=== PATIENT | male | born 1975 | race American Indian/Alaskan Native ===

== ENCOUNTER 2018-02-18 13:35 | Emergency (ER) | payer OTHER ==
[2018-02-18] MEDS ORDERED: APRESOLINE IV ONE (15:57)
[2018-02-18] MEDS ORDERED: MORPHINE IV ONE (15:57)
[2018-02-18] MEDS ORDERED: BOOSTRIX IM ONE (15:57)
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
[2018-02-18 16:36] LABS: Hematocrit 45.5 % (35.5-45.6); Hemoglobin 15.5 gm/dl (11.8-15.2); Mean Corpuscular HGB Conc 34 % (32-34); Mean Corpuscular Hemoglobin 31 pg (28-32); Mean Corpuscular Volume 92 fl (84-94); Platelet Count 188 K/mm3 (140-440); Red Blood Count 4.94 M/mm3 (3.65-5.03); Red Cell Distribution Width 13.5 % (13.2-15.2)
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
[2018-02-18 16:49] LABS: BUN/Creatinine Ratio 7; Blood Urea Nitrogen 10 mg/dL (9-20); Calcium 9.9 mg/dL (8.4-10.2); Hemolysis Index 46
[2018-02-18 18:28] VITALS: BP 183/120
== END 2018-02-18 18:32 | disposition home or self-care (01) ==
LOC: ED 13:35
DX: T23.101A Burn of first degree of right hand, unspecified site, initial encounter (principal); R03.0 Elevated blood-pressure reading, without diagnosis of hypertension; W40.1XXA Explosion of explosive gases, initial encounter; Y93.89 Activity, other specified; Y92.89 Other specified places as the place of occurrence of the external cause; Y99.8 Other external cause status
CPT/HCPCS: 36415; 73130; 80048; 82550; 85027; 90471; 90715; 96374; 96375; 99284; J0360; J2270

== ENCOUNTER 2020-07-07 22:38 | Inpatient (IN) | payer SELFPAY ==
[2020-07-07] MEDS ORDERED: cloNIDine 0.2 MG TAB PO ONE (22:48)
[2020-07-07] MEDS ORDERED: ASPIRIN 325 MG TAB PO ONE (22:48)
[2020-07-07] MEDS ORDERED: ASPIRIN 325 MG TAB ONE (22:49)
--- NOTE | 2020-07-07 23:06 | Emergency Department Report ---
ED Chest Pain HPI - General Chief Complaint: Chest Pain Stated Complaint: SAMUEL PUI?: No Time Seen by Provider: 07/07/20 23:04 Source: patient Mode of arrival: Ambulatory Limitations: No Limitations - History of Present Illness Initial Comments: Patient is a 45-year-old male that presents emergency room with complaints of chest pain shortness of breath. Patient states his chest pain shortness of breath started 2 hours ago. Patient states that his symptoms are worsening. Patient states the chest pain is in the center of his chest and his left chest. Patient states it is nonradiating. Patient states the pain is a 10 out of 10. Patient states his chest pain or shortness of breath are better with rest and worse with exertion. Patient states he has a history of high blood pressure but is noncompliant with his medications. Patient denies nausea vomiting. Patient denies headache. Patient denies recent travel. Patient denies recent international travel. Patient denies exposure to the novel coronavirus. Patient denies sick contacts. Patient denies fever and chills. Patient denies cough. Patient denies diarr hea. Patient denies coming in contact with anybody with symptoms of the novel coronavirus. MD Complaint: chest pain -: Sudden Onset: during rest Pain Location: substernal, left chest Pain Radiation: none Severity: severe Severity scale (0 -10): 10 Quality: sharp Consistency: constant Worsens With: exertion re: diaphoresis, dyspnea, sense of impending doom. denies: nausea, vomting Other Symptoms: denies: cough, fever, syncope, rash, acid taste in mouth, leg swelling, palpitations, burping Treatments Prior to Arrival: aspirin Aspirin use within the Past 7 Days: (1) Yes - Related Data On Oral Contraceptives: No Previous Rx's Medication Instructions Recorded Last Taken Type Acetaminophen [Tylenol Arthritis] 650 mg PO Q6HR PRN #30 tablet.er 02/18/18 Unknown Rx Amlodipine Besylate [Norvasc] 5 mg PO QDAY #30 tablet 02/18/18 Unknown Rx Bacitracin Zinc Oint [Antibiotic 1 applicatio TP BID #1 tube 02/18/18 Unknown Rx Oint] Ibuprofen [Motrin] 600 mg PO Q8H PRN #30 tablet 02/18/18 Unknown Rx Allergies Allergy/AdvReac Type Severity Reaction Status Date / Time No Known Allergies Allergy Verified 07/07/20 22:58 Heart Score - HEART Score History: Moderately suspicious EKG: Non-specific Age: 45-65 Risk factors: 1-2 risk factors Troponin: < normal limit HEART Score: 4 ED Review of Systems ROS: Stated complaint: SAMUEL Other details as noted in HPI Constitutional: denies: chills, fever Eyes: denies: eye pain, eye discharge, vision change ENT: denies: ear pain, throat pain Respiratory: shortness of breath. denies: cough, wheezing Cardiovascular: chest pain. denies: palpitations Endocrine: no symptoms reported Gastrointestinal: denies: abdominal pain, nausea, diarrhea Genitourinary: denies: urgency, dysuria Musculoskeletal: denies: back pain, joint swelling, arthralgia Skin: denies: rash, lesions Neurological: denies: headache, weakness, paresthesias Psychiatric: denies: anxiety, depression Hematological/Lymphatic: denies: easy bleeding, easy bruising ED Past Medical Hx - Past Medical History Previous Medical History?: Yes Hx Hypertension: Yes Additional medical history: Morbid Obesity - Surgical History Past Surgical History?: Yes Additional Surgical History: hernia repair - Family History Family history: no significant - Social History Smoking Status: Never Smoker Substance Use Type: None - Medications Home Medications: Home Medications Medication Instructions Recorded Confirmed Last Taken Type Acetaminophen [Tylenol Arthritis] 650 mg PO Q6HR PRN #30 tablet.er 02/18/18 Unknown Rx Amlodipine Besylate [Norvasc] 5 mg PO QDAY #30 tablet 02/18/18 Unknown Rx Bacitracin Zinc Oint [Antibiotic 1 applicatio TP BID #1 tube 02/18/18 Unknown Rx Oint] Ibuprofen [Motrin] 600 mg PO Q8H PRN #30 tablet 02/18/18 Unknown Rx ED Physical Exam - General Limitations: No Limitations General appearance: alert, in no apparent distress - Head Head exam: Present: atraumatic, normocephalic - Eye Eye exam: Present: normal appearance - ENT ENT exam: Present: mucous membranes moist - Neck Neck exam: Present: normal inspection - Respiratory Respiratory exam: Present: normal lung sounds bilaterally. Absent: respiratory distress, chest wall tenderness - Cardiovascular Cardiovascular Exam: Present: regular rate, normal rhythm. Absent: systolic murmur, diastolic murmur, rubs, gallop - GI/Abdominal GI/Abdominal exam: Present: soft, normal bowel sounds - Rectal Rectal exam: Present: deferred - Extremities Exam Extremities exam: Present: normal inspection - Back Exam Back exam: Present: normal inspection - Neurological Exam Neurological exam: Present: alert, oriented X3 - Psychiatric Psychiatric exam: Present: normal affect, normal mood - Skin Skin exam: Present: warm, dry, intact, normal color. Absent: rash ED Course Vital Signs 07/07/20 07/07/20 07/07/20 22:46 22:56 23:50 Temperature 98.7 F Pulse Rate 99 H 99 H 99 H Respiratory 20 20 Rate Blood Pressure 270/174 270/174 Blood Pressure 139/77 [left arm] O2 Sat by Pulse 98 99 Oximetry 07/08/20 07/08/20 07/08/20 00:58 02:22 02:46 Temperature Pulse Rate 98 H 108 H Respiratory Rate Blood Pressure 183/89 Blood Pressure 202/128 211/126 [left arm] O2 Sat by Pulse 99 Oximetry 07/08/20 07/08/20 07/08/20 03:04 03:06 03:10 Temperature Pulse Rate 108 H 108 H 108 H Respiratory 22 19 Rate Blood Pressure Blood Pressure [left arm] O2 Sat by Pulse 94 Oximetry 07/08/20 07/08/20 07/08/20 03:21 03:25 03:30 Temperature Pulse Rate 108 H 109 H 112 H Respiratory 20 22 21 Rate Blood Pressure 188/121 186/120 177/127 Blood Pressure [left arm] O2 Sat by Pulse 93 85 94 Oximetry 07/08/20 07/08/20 07/08/20 03:35 03:41 03:44 Temperature Pulse Rate 119 H 112 H 100 H Respiratory 15 17 18 Rate Blood Pressure 177/127 174/111 Blood Pressure 174/111 [left arm] O2 Sat by Pulse 96 92 100 Oximetry 07/08/20 07/08/20 07/08/20 03:45 03:51 03:55 Temperature Pulse Rate 108 H 107 H 108 H Respiratory 18 20 19 Rate Blood Pressure 174/111 174/111 174/111 Blood Pressure [left arm] O2 Sat by Pulse 92 95 100 Oximetry 07/08/20 07/08/20 07/08/20 04:00 04:05 04:11 Temperature Pulse Rate 109 H 109 H 120 H Respiratory 17 18 21 Rate Blood Pressure 166/104 166/104 166/104 Blood Pressure [left arm] O2 Sat by Pulse 100 98 100 Oximetry 07/08/20 07/08/20 07/08/20 04:15 04:21 04:25 Temperature Pulse Rate 124 H 111 H 111 H Respiratory 21 27 H 19 Rate Blood Pressure 166/104 166/104 166/104 Blood Pressure [left arm] O2 Sat by Pulse 100 99 100 Oximetry 07/08/20 07/08/20 04:30 04:35 Temperature Pulse Rate 113 H 110 H Respiratory 18 25 H Rate Blood Pressure 180/108 180/108 Blood Pressure [left arm] O2 Sat by Pulse 94 99 Oximetry - Reevaluation(s) Reevaluation #1: Patient had a extremely high blood pressure in triage of 270/170. Patient given clonidine. Patient blood pressure improved. 07/07/20 23:11 Reevaluation #2: Patient having severe chest pain. Patient will be given 2 mg of morphine. 07/07/20 23:22 Reevaluation #3: Patient complaining of severe chest pain. Patient was given another 2 mg of morphine. 07/07/20 23:52 Reevaluation #4: Patient blood pressure is 180/130. Patient was given 5 mg of Lopressor. Patient states his pain is a little bit better. I discussed all results with patient. I discussed plan of care with patient. Patient agrees with plan of care and admission. Patient to be admitted to the hospitalist service. 07/08/20 00:52 Reevaluation #5: Patient blood pressure is still elevated at 230/150. After Lopressor. Patient will be placed on a nicardipine drip. 07/08/20 01:20 Patient blood pressure improved with nicardipine drip. 07/08/20 01:50 Patient second troponin came back elevated. I discussed this with the hospitalist. I will start the patient on heparin drip per the heparin protocol. 07/08/20 04:54 - Consultations Consultation #1: Hospitalist consulted for admission. Hospitalist to admit patient. 07/08/20 01:21 I discussed the new troponin with the hospitalist. Hospitalist agrees with heparin drip. 07/08/20 04:55 EMILIA score - Emilia Score Age > 65: (0) No Aspirin use within the Past 7 Days: (1) Yes 3 or more CAD Risk Factors: (0) No 2 or more Angina events in past 24 hrs: (0) No Known CAD with more than 50% Stenosis: (0) No Elevated Cardiac Markers: (0) No ST Deviation Greater than 0.5mm: (0) No EMILIA Score: 1 ED Medical Decision Making - Lab Data Result diagrams: 07/08/20 02:22 07/08/20 02:22 - EKG Data -: EKG Interpreted by Me EKG shows normal: sinus rhythm, axis, intervals, QRS complexes, ST-T waves Rate: tachycardia - Radiology Data Radiology results: report reviewed, image reviewed interpreted by me: Chest x-ray: No pneumonia, no pneumothorax, no foreign body, no osseous findings, no acute findings CHEST 1 VIEW 07/07/2020 10:41 PM INDICATION / CLINICAL INFORMATION: dyspnea, chest pain. COMPARISON: None available. FINDINGS: SUPPORT DEVICES: None. HEART / MEDIASTINUM: No significant abnormality. LUNGS / PLEURA: No significant pulmonary or pleural abnormality. No pneumothorax. ADDITIONAL FINDINGS: No significant additional findings. IMPRESSION: 1. No acute findings. CTA CHEST WITH CONTRAST INDICATION / CLINICAL INFORMATION: cp/sob. TECHNIQUE: Axial CT images were obtained through the chest after injection of 100 cc of Omnipaque 350 IV contrast. 3 plane MIP and/or 3D reconstructions were produced. All CT scans at this location are performed using CT dose reduction for ALARA by means of automated exposure control. COMPARISON: None available. FINDINGS: PULMONARY ARTERIES: No pulmonary embolus is seen. THORACIC AORTA: No significant abnormality. HEART: No significant abnormality. CORONARY ARTERY CALCIFICATION: None. MEDIASTINUM / SHERRIE: No significant abnormality. PLEURA: No pleural effusion. No pneumothorax. LUNGS: There is mosaic attenuation within the lungs which could represent small airways disease. No focal infiltrate is seen. There is mild dependent atelectasis on the right. ADDITIONAL FINDINGS: None. UPPER ABDOMEN: No acute findings. SKELETAL STRUCTURES: No significant osseous abnormality. IMPRESSION: 1. No CT evidence for pulmonary embolism. 2. Mild mosaic attenuation of the lungs which could represent small airways dise ase. - Medical Decision Making Patient is a 45-year-old male that presents emergency room with chest pain and shortness of breath. Patient had labs which were essentially unremarkable. Patient cardiac enzymes were negative. Patient had chest x-ray which was negative for acute findings. Patient had a CTA due to his complaints of shortness of breath, chest pain and elevated blood pressure. Patient CTA was negative for acute findings. Patient is high risk and has cardiac comorbidities. Patient's heart score is elevated. Patient EMILIA score is elevated. Patient's blood pressure severely [id number]. Patient was given clonidine then given Lopressor in the place his blood pressure stayed above 200. Patient then was placed on a Cardizem drip. Patient's blood pressure responded well. Patient admitted to the hospitalist service and into the ICU. Patient admitted to the hospital service for further evaluation treatment and rule out ACS. After admission, I was reviewing the patient's labs and noticed that the second troponin was elevated. I discussed this with the hospitalist and the hospitalist agrees with putting the patient on a heparin drip protocol. I started the heparin drip protocol. - Differential Diagnosis Chest pain, dissection, PE, hypertensive emergency, ACS, SOB Critical Care Time: Yes Critical care time in (mins) excluding proc time.: 45 Critical care attestation.: If time is entered above; I have spent that time in minutes in the direct care of this critically ill patient, excluding procedure time. Critical Care Time: 45 minutes ED Disposition Clinical Impression: SOB (shortness of breath), Hypertensive emergency, Hyperglycemia, NSTEMI (non- ST elevated myocardial infarction) Chest pain Qualifiers: Chest pain type: unspecified Qualified Code(s): R07.9 - Chest pain, unspecified Disposition: OP ADMIT IP TO THIS HOSP Is pt being admited?: Yes Does the pt Need Aspirin: No Condition: Critical Time of Disposition: 01:22
[2020-07-07 23:14] LABS: Basophils # (Auto) 0.1 K/mm3 (0.0-0.1); Basophils % (Auto) 1.2 % (0.0-1.8); Eosinophils # (Auto) 0.1 K/mm3 (0.0-0.4); Eosinophils % (Auto) 1.6 % (0.0-4.3); Hematocrit 47.2 % (35.5-45.6); Lymphocytes # (Auto) 2.3 K/mm3 (1.2-5.4); Lymphocytes % (Auto) 29.4 % (13.4-35.0); Mean Corpuscular HGB Conc 34 % (32-34); Mean Corpuscular Volume 90 fl (84-94); Monocytes # (Auto) 0.7 K/mm3 (0.0-0.8); Monocytes % (Auto) 8.3 % (0.0-7.3); Platelet Count 227 K/mm3 (140-440); Red Blood Count 5.22 M/mm3 (3.65-5.03); Red Cell Distribution Width 14.5 % (13.2-15.2)
[2020-07-07] MEDS ORDERED: MORPHINE 2 MG/1 ML INJ ONE (23:16)
[2020-07-07] MEDS ORDERED: ONDANSETRON 4 MG/2 ML INJ ONE (23:16)
[2020-07-07 23:24] LABS: INR 0.98 (0.87-1.13)
[2020-07-07 23:25] LABS: Partial Thromboplastin Time 26.8 Sec. (24.2-36.6)
[2020-07-07] MEDS ORDERED: ONDANSETRON 4 MG/2 ML INJ IV ONE (23:27)
[2020-07-07] MEDS ORDERED: MORPHINE 2 MG/1 ML INJ IV ONE ×2 (23:27→23:57)
[2020-07-07 23:40] LABS: Alanine Aminotransferase 18 units/L (7-56); Albumin 4.5 g/dL (3.9-5); BUN/Creatinine Ratio 16; Blood Urea Nitrogen 16 mg/dL (9-20); Calcium 10.1 mg/dL (8.4-10.2); Hemolysis Index 44
--- NOTE | 2020-07-07 23:57 | XRay Report ---
CHEST 1 VIEW 07/07/2020 10:41 PM INDICATION / CLINICAL INFORMATION: dyspnea, chest pain. COMPARISON: None available. FINDINGS: SUPPORT DEVICES: None. HEART / MEDIASTINUM: No significant abnormality. LUNGS / PLEURA: No significant pulmonary or pleural abnormality. No pneumothorax. ADDITIONAL FINDINGS: No significant additional findings. IMPRESSION: 1. No acute findings. Signer Name: Osmar Bianchi MD Signed: 07/07/2020 11:52 PM Workstation Name: [id number]
--- NOTE | 2020-07-08 00:12 | Cat Scan Report ---
CTA CHEST WITH CONTRAST INDICATION / CLINICAL INFORMATION: cp/sob. TECHNIQUE: Axial CT images were obtained through the chest after injection of 100 cc of Omnipaque 350 IV contrast. 3 plane MIP and/or 3D reconstructions were produced. All CT scans at this location are performed using CT dose reduction for ALARA by means of automated exposure control. COMPARISON: None available. FINDINGS: PULMONARY ARTERIES: No pulmonary embolus is seen. THORACIC AORTA: No significant abnormality. HEART: No significant abnormality. CORONARY ARTERY CALCIFICATION: None. MEDIASTINUM / SHERRIE: No significant abnormality. PLEURA: No pleural effusion. No pneumothorax. LUNGS: There is mosaic attenuation within the lungs which could represent small airways disease. No f ocal infiltrate is seen. There is mild dependent atelectasis on the right. ADDITIONAL FINDINGS: None. UPPER ABDOMEN: No acute findings. SKELETAL STRUCTURES: No significant osseous abnormality. IMPRESSION: 1. No CT evidence for pulmonary embolism. 2. Mild mosaic attenuation of the lungs which could represent small airways disease. Signer Name: Osmar Bianchi MD Signed: 07/08/2020 12:08 AM Workstation Name: [id number]
[2020-07-08] MEDS ORDERED: METOPROLOL TARTRATE 5 MG/5 ML INJ IV ONE (00:53)
[2020-07-08] MEDS ORDERED: niCARdipine DRIP 40 MG/200 ML BAG IV ONE ×2 (01:10→05:39)
[2020-07-08] MEDS ORDERED: NITROGLYCERIN 0.4 MG TAB SUBL SL PRN (01:56)
[2020-07-08] MEDS ORDERED: MORPHINE 2 MG/1 ML INJ IV PRN (01:56)
[2020-07-08] MEDS ORDERED: ACETAMINOPHEN 325 MG TAB PO PRN (01:56)
--- NOTE | 2020-07-08 02:05 | History and Physical Report ---
History of Present Illness Date of examination: 07/08/20 Chief complaint: Chest pain shortness of breath History of present illness: 45-year-old male with history of hypertension was brought to the emergency room with complaints of chest pain shortness of breath. Patient complained of chest pain which is 10/10 in the center of his chest and his left chest nonradiating as stated shortness of breath for the past 2 hours Patient states the pain is a 10 out of 10. Patient states his chest pain or shortness of breath are better with rest and worse with exertion. Patient states he has a history of high blood pressure but is noncompliant with his medications. Patient denies nausea vomiting. Patient denies headache. In the emergency room patient is found to have blood pressure up to 70/174. Initial cardiac enzyme is negative Past History Past Medical History: hypertension Medications and Allergies Allergies Allergy/AdvReac Type Severity Reaction Status Date / Time No Known Allergies Allergy Verified 07/07/20 22:58 Home Medications Medication Instructions Recorded Confirmed Last Taken Type Acetaminophen [Tylenol Arthritis] 650 mg PO Q6HR PRN #30 tablet.er 02/18/18 Unknown Rx Amlodipine Besylate [Norvasc] 5 mg PO QDAY #30 tablet 02/18/18 Unknown Rx Bacitracin Zinc Oint [Antibiotic 1 applicatio TP BID #1 tube 02/18/18 Unknown Rx Oint] Ibuprofen [Motrin] 600 mg PO Q8H PRN #30 tablet 02/18/18 Unknown Rx Active Meds: Active Medications Acetaminophen (Acetaminophen 325 Mg Tab) 650 mg PO Q6H PRN PRN Reason: Pain, Mild (1-3) Amlodipine Besylate (Amlodipine 5 Mg Tab) 5 mg PO QDAY [facility] Aspirin (Aspirin Ec 325 Mg Tab) 325 mg PO QDAY [facility] Atorvastatin Calcium (Atorvastatin 40 Mg Tab) 80 mg PO QHS [facility] Nicardipine/Sodium Chloride (Cardene Drip 40 Mg/200 Ml) 40 mg in 200 mls @ 25 mls/hr IV ONCE ONE; Protocol Stop: 07/08/20 09:09 Last Admin: 07/08/20 01:35 Dose: 5 mg/hr, 25 mls/hr Documented by: Lisinopril (Lisinopril 5 Mg Tab) 5 mg PO QDAY [facility] Morphine Sulfate (Morphine 2 Mg/1 Ml Inj) 2 mg IV Q5MIN PRN PRN Reason: Chest Pain unrelieved by NTG Nitroglycerin (Nitroglycerin 0.4 Mg Tab Subl) 0.4 mg SL Q5M PRN PRN Reason: Chest Pain Sodium Chloride (Sodium Chloride 0.9% 10 Ml Flush Syringe) 10 ml IV PRN PRN PRN Reason: LINE FLUSH Review of Systems Cardiovascular: chest pain, shortness of breath Respiratory: shortness of breath Exam - Constitutional Vitals: Temp Pulse Resp BP Pulse Ox 98.7 F 99 H 20 183/89 99 07/07/20 22:46 07/07/20 23:50 07/07/20 23:50 07/08/20 00:58 07/07/20 23:50 General appearance: Present: no acute distress, well-nourished - EENT Eyes: Present: PERRL ENT: hearing intact, clear oral mucosa - Neck Neck: Present: supple, normal ROM - Respiratory Respiratory effort: normal Respiratory: bilateral: diminished - Cardiovascular Heart Sounds: Present: S1 & S2. Absent: rub, click - Extremities Extremities: pulses symmetrical, No edema Peripheral Pulses: within normal limits - Abdominal General gastrointestinal: Present: soft, non-tender, non-distended, normal bowel sounds Male genitourinary: Present: normal - Integumentary Integumentary: Present: clear, warm, dry - Musculoskeletal Musculoskeletal: gait normal, strength equal bilaterally - Psychiatric Psychiatric: appropriate mood/affect, intact judgment & insight - Neurologic Neurologic: CNII-XII intact, moves all extremities HEART Score - HEART Score EKG: Non-specific Age: 45-65 Risk factors: 1-2 risk factors Troponin: Troponin T < 0.010 ng/mL (0.00-0.029) 07/07/20 22:51 Troponin: < normal limit Results - Labs CBC & Chem 7: 07/07/20 22:51 07/07/20 22:51 Labs: Laboratory Last Values WBC 7.8 K/mm3 (4.5-11.0) 07/07/20 22:51 RBC 5.22 M/mm3 (3.65-5.03) H 07/07/20 22:51 Hgb 16.0 gm/dl (11.8-15.2) H 07/07/20 22:51 Hct 47.2 % (35.5-45.6) H 07/07/20 22:51 MCV 90 fl (84-94) 07/07/20 22:51 MCH 31 pg (28-32) 07/07/20 22:51 MCHC 34 % (32-34) 07/07/20 22:51 RDW 14.5 % (13.2-15.2) 07/07/20 22:51 Plt Count 227 K/mm3 (140-440) 07/07/20 22:51 Lymph % (Auto) 29.4 % (13.4-35.0) 07/07/20 22:51 [place] % (Auto) 8.3 % (0.0-7.3) H 07/07/20 22:51 Eos % (Auto) 1.6 % (0.0-4.3) 07/07/20 22:51 Baso % (Auto) 1.2 % (0.0-1.8) 07/07/20 22:51 Lymph # (Auto) 2.3 K/mm3 (1.2-5.4) 07/07/20 22:51 [place] # (Auto) 0.7 K/mm3 (0.0-0.8) 07/07/20 22:51 Eos # (Auto) 0.1 K/mm3 (0.0-0.4) 07/07/20 22:51 Baso # (Auto) 0.1 K/mm3 (0.0-0.1) 07/07/20 22:51 Seg Neutrophils % 59.5 % (40.0-70.0) 07/07/20 22:51 Seg Neutrophils # 4.7 K/mm3 (1.8-7.7) 07/07/20 22:51 PT 12.9 Sec. (12.2-14.9) 07/07/20 22:51 INR 0.98 (0.87-1.13) 07/07/20 22:51 APTT 26.8 Sec. (24.2-36.6) 07/07/20 22:51 Sodium 137 mmol/L (137-145) 07/07/20 22:51 Potassium 3.7 mmol/L (3.6-5.0) 07/07/20 22:51 Chloride 100.6 mmol/L (98-107) 07/07/20 22:51 Carbon Dioxide 22 mmol/L (22-30) 07/07/20 22:51 Anion Gap 18 mmol/L 07/07/20 22:51 BUN 16 mg/dL (9-20) 07/07/20 22:51 Creatinine 1.0 mg/dL (0.8-1.3) 07/07/20 22:51 Estimated GFR > 60 ml/min 07/07/20 22:51 BUN/Creatinine Ratio 16 % 07/07/20 22:51 Glucose 156 mg/dL (75-100) H 07/07/20 22:51 Calcium 10.1 mg/dL (8.4-10.2) 07/07/20 22:51 Total Bilirubin 0.30 mg/dL (0.1-1.2) 07/07/20 22:51 AST 21 units/L (5-40) 07/07/20 22:51 ALT 18 units/L (7-56) 07/07/20 22:51 Alkaline Phosphatase 82 units/L (35-129) 07/07/20 22:51 Troponin T < 0.010 ng/mL (0.00-0.029) 07/07/20 22:51 NT-Pro-B Natriuret Pep 165.3 pg/mL (0-450) 07/08/20 00:55 Total Protein 8.5 g/dL (6.3-8.2) H 07/07/20 22:51 Albumin 4.5 g/dL (3.9-5) 07/07/20 22:51 Albumin/Globulin Ratio 1.1 % 07/07/20 22:51 TSH 1.200 mlU/mL (0.270-4.200) 07/07/20 22:51 - Imaging and Cardiology Chest x-ray: image reviewed CT scan - chest: image reviewed [place]/IV: IV Catheter Type [right ac] Peripheral IV Assessment and Plan - Patient Problems (1) Chest pain Current Visit: Yes Status: Acute Qualifiers: Chest pain type: unspecified Qualified Code(s): R07.9 - Chest pain, unspecified Plan to address problem: Admit the patient to the ICU. Put the patient on chest pain pathway. Aspirin 325 mg p.o. daily. Lipitor 80 mg p.o. daily. We will do the serial cardiac enzyme. We also do a Lexiscan and echocardiogram. Serial cardiac enzyme. Will consult cardiology to see the patient. SCD for DVT prophylaxis because of hypertension and Protonix 40 mg p.o. daily for GI prophylaxis (2) Hypertensive emergency Current Visit: Yes Status: Acute Plan to address problem: Patient is on nicardipine drip for hypertension. We also resume the home medication. We will wean of the drip. Echocardiogram. Will consult cardiology for further evaluation (3) SOB (shortness of breath) Current Visit: Yes Status: Acute Plan to address problem: Oxygen per nasal plan 3 L/min. DuoNeb by nebulizer every 4 hours as needed.
[2020-07-08 02:49] LABS: Basophils % (Auto) 0.2 % (0.0-1.8); Eosinophils % (Auto) 0.2 % (0.0-4.3); Hematocrit 49.6 % (35.5-45.6); Hemoglobin 16.4 gm/dl (11.8-15.2); Lymphocytes # (Auto) 0.9 K/mm3 (1.2-5.4); Lymphocytes % (Auto) 11.1 % (13.4-35.0); Mean Corpuscular HGB Conc 33 % (32-34); Mean Corpuscular Volume 90 fl (84-94); Monocytes # (Auto) 0.3 K/mm3 (0.0-0.8); Monocytes % (Auto) 3.7 % (0.0-7.3); Platelet Count 228 K/mm3 (140-440); Red Blood Count 5.51 M/mm3 (3.65-5.03); Red Cell Distribution Width 14.4 % (13.2-15.2)
[2020-07-08 02:55] LABS: BUN/Creatinine Ratio 14; Blood Urea Nitrogen 14 mg/dL (9-20); Calcium 9.9 mg/dL (8.4-10.2); Hemolysis Index 28
[2020-07-08 04:11] LABS: Chol/HDL Ratio 6.04 %
[2020-07-08] MEDS ORDERED: HEPARIN 10,000 UNITS/10 ML VIAL IV ONE (04:35)
[2020-07-08] MEDS ORDERED: HEPARIN/ 0.45% NACL DRIP 25,000 UNIT/500 ML BAG IV SCH (05:00)
[2020-07-08] MEDS ORDERED: amLODIPine 5 MG TAB PO SCH (10:00)
[2020-07-08] MEDS ORDERED: LISINOPRIL 5 MG TAB PO SCH (10:00)
[2020-07-08] MEDS ORDERED: ASPIRIN EC 325 MG TAB PO ONE (11:00)
[2020-07-08] MEDS ORDERED: SODIUM CHLORIDE 0.9% 500 ML 500 ML IV SCH (11:00)
[2020-07-08] MEDS ORDERED: LIDOCAINE (2%) 20 MG/1 ML VIAL 20 ML MDV INFILTRATI ONE (11:02)
[2020-07-08] MEDS ORDERED: fentaNYL 100 MCG/2 ML INJ ONE (11:02)
[2020-07-08] MEDS ORDERED: HEPARIN 10,000 UNITS/10 ML VIAL ONE (11:02)
[2020-07-08] MEDS ORDERED: NITROGLYCERIN SYRINGE 3 ML ONE (11:02)
[2020-07-08] MEDS ORDERED: MIDAZOLAM 2 MG/2 ML INJ ONE (11:02)
[2020-07-08] MEDS ORDERED: HEPARIN/NS 5000 UNIT/500ML 1,000 ML IR ONE (11:02)
[2020-07-08] MEDS ORDERED: VERAPAMIL 5 MG/2 ML INJ ONE (11:02)
--- NOTE | 2020-07-08 11:47 | Consultation ---
History of Present Illness Consult date: 07/08/20 Requesting physician: LAMINE CEE Consult reason: chest pain History of present illness: The patient is a 45-year-old male with a known past medical history of HTN and tobacco use. He is previously unknown to our practice. He does not regularly see a PCP. He presented with c/o chest pain and SOB. He states that around bedtime for the past 2 nights prior to presentation, he was sitting at rest when he suddenly developed chest pain and SOB. He describes his chest pain as a constant left-sided pressure which radiated down his left arm. The pain lasted for several minutes on the first occurrence and then resolved. On the second occurrence of the chest pain, the pain did not resolve and thus he decided to seek medical evaluation. On evaluation, pt reports he is chest pain free. Labwork is significant for hyperlipidemia, hyperglycemia, and upwards trending troponin for which he as initiated on heparin gtt overnight. Past History Past Medical History: hypertension Medications and Allergies Allergies Allergy/AdvReac Type Severity Reaction Status Date / Time No Known Allergies Allergy Verified 07/07/20 22:58 Home Medications Medication Instructions Recorded Confirmed Last Taken Type Acetaminophen [Tylenol Arthritis] 650 mg PO Q6HR PRN #30 tablet.er 02/18/18 Unknown Rx Amlodipine Besylate [Norvasc] 5 mg PO QDAY #30 tablet 02/18/18 Unknown Rx Ibuprofen [Motrin] 600 mg PO Q8H PRN #30 tablet 02/18/18 Unknown Rx RX: Bacitracin Zinc Oint 1 applicatio TP BID #1 tube 02/18/18 Unknown Rx [Antibiotic Oint] Active Meds: Active Medications Acetaminophen (Acetaminophen 325 Mg Tab) 650 mg PO Q6H PRN PRN Reason: Pain, Mild (1-3) Amlodipine Besylate (Amlodipine 5 Mg Tab) 5 mg PO QDAY [facility] Aspirin (Aspirin Ec 325 Mg Tab) 325 mg PO QDAY [facility] Atorvastatin Calcium (Atorvastatin 40 Mg Tab) 80 mg PO QHS [facility] Heparin Sodium/Sodium Chloride (Heparin/ 0.45% Nacl-25,000 Unit/500 Ml) 25,000 unit in 500 mls @ 30 mls/hr IV TITR [facility]; Protocol Last Admin: 07/08/20 05:10 Dose: 1,500 units/hr, 30 mls/hr Documented by: Sodium Chloride (Nacl 0.9% 500 Ml) 500 mls @ 50 mls/hr IV DIRECT [facility] Stop: 07/08/20 20:59 Last Admin: 07/08/20 11:06 Dose: 50 mls/hr Documented by: Lisinopril (Lisinopril 5 Mg Tab) 5 mg PO QDAY [facility] Morphine Sulfate (Morphine 2 Mg/1 Ml Inj) 2 mg IV Q5MIN PRN PRN Reason: Chest Pain unrelieved by NTG Nitroglycerin (Nitroglycerin 0.4 Mg Tab Subl) 0.4 mg SL Q5M PRN PRN Reason: Chest Pain Sodium Chloride (Sodium Chloride 0.9% 10 Ml Flush Syringe) 10 ml IV PRN PRN PRN Reason: LINE FLUSH Review of Systems Constitutional: no weight loss, no weight gain, no fever, no chills, no sweats Ears, nose, mouth and throat: no ear pain, no nose pain, no sinus pressure, no sinus pain Cardiovascular: chest pain, shortness of breath, dyspnea on exertion, high blood pressure, no orthopnea, no palpitations, no rapid/irregular heart beat, no edema, no syncope, no lightheadedness, no leg edema Respiratory: shortness of breath, dyspnea on exertion, no cough, no congestion, no wheezing, no pain on inspiration Gastrointestinal: no abdominal pain, no nausea, no vomiting, no diarrhea, no constipation, no change in bowel habits Genitourinary Male: no dysuria, no hematuria, no flank pain, no discharge, no urinary frequency, no urinary hesitancy Musculoskeletal: no neck stiffness, no neck pain, no shooting arm pain, no arm numbness/tingling, no low back pain, no shooting leg pain Integumentary: no rash, no pruritis, no redness, no sores, no wounds Neurological: no head injury, no paralysis, no weakness, no parathesias, no numbness, no tingling, no seizures, no syncope Psychiatric: no anxiety Endocrine: no cold intolerance, no heat intolerance Hematologic/Lymphatic: no easy bruising Allergic/Immunologic: no urticaria Physical Examination Vital Signs Temp Pulse Resp BP Pulse Ox 98.7 F 99 H 20 270/174 98 07/07/20 22:46 07/07/20 22:46 07/07/20 22:46 07/07/20 22:46 07/07/20 22:46 General appearance: no acute distress HEENT: Positive: PERRL, Normocephaly, Mucus Membranes Moist Neck: Positive: neck supple, trachea midline Cardiac: Positive: Reg Rate and Rhythm, S1/S2 Lungs: Positive: Decreased Breath Sounds Neuro: Positive: Grossly Intact Abdomen: Positive: Tender Skin: Negative: Rash Musculoskeletal: No Pain Extremities: Absent: edema Results 07/08/20 02:22 07/08/20 02:22 Cardiac Enzymes 07/07/20 Range/Units 22:51 AST 21 (5-40) units/L Coagulation 07/07/20 Range/Units 22:51 PT 12.9 (12.2-14.9) Sec. INR 0.98 (0.87-1.13) APTT 26.8 (24.2-36.6) Sec. Lipids 07/08/20 Range/Units 02:22 Triglycerides 223 H (2-149) mg/dL Cholesterol 254 H (50-199) mg/dL HDL Cholesterol 42 (40-59) mg/dL Cholesterol/HDL Ratio 6.04 % CBC 07/07/20 07/08/20 Range/Units 22:51 02:22 WBC 7.8 7.9 (4.5-11.0) K/mm3 RBC 5.22 H 5.51 H (3.65-5.03) M/mm3 Hgb 16.0 H 16.4 H (11.8-15.2) gm/dl Hct 47.2 H 49.6 H (35.5-45.6) % Plt Count 227 228 (140-440) K/mm3 Lymph # (Auto) 2.3 0.9 L (1.2-5.4) K/mm3 [place] # (Auto) 0.7 0.3 (0.0-0.8) K/mm3 Eos # (Auto) 0.1 0.0 (0.0-0.4) K/mm3 Baso # (Auto) 0.1 0.0 (0.0-0.1) K/mm3 Comprehensive Metabolic Panel 07/07/20 07/08/20 Range/Units 22:51 02:22 Sodium 137 135 L (137-145) mmol/L Potassium 3.7 3.9 (3.6-5.0) mmol/L Chloride 100.6 97.9 L (98-107) mmol/L Carbon Dioxide 22 25 (22-30) mmol/L BUN 16 14 (9-20) mg/dL Creatinine 1.0 1.0 (0.8-1.3) mg/dL Glucose 156 H 147 H (75-100) mg/dL Calcium 10.1 9.9 (8.4-10.2) mg/dL AST 21 (5-40) units/L ALT 18 (7-56) units/L Alkaline Phosphatase 82 (35-129) units/L Total Protein 8.5 H (6.3-8.2) g/dL Albumin 4.5 (3.9-5) g/dL - Imaging and Cardiology Echo: pending EKG: report reviewed, image reviewed EKG interpretations - Telemetry EKG Rhythm: Sinus Tachycardia - EKG Sinus rhythms and dysrhythmias: sinus rhythm Assessment and Plan tte reviewed - EF 60-65%, mod LVH. Pt was initially scheduled for stress testing today which was cancelled due to elevated Diogo. Coronary angiography recommended in setting of NSTEMI. 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 Pt would like to leave AMA. He has been strongly encouraged against leaving AMA. He is currently chest pain free. Will optimize anti-ischemic and anti-hypertensive regimen and cont to follow pending he remains admitted. Ischemic evaluation recommended if/when pt is agreeable. The patient has been seen in conjunction with Dr. Abbi Ray who agrees with the assessment and plan of care. - Patient Problems (1) NSTEMI (non-ST elevated myocardial infarction) Current Visit: Yes Status: Acute (2) ACS (acute coronary syndrome) Current Visit: Yes Status: Acute (3) Hypertensive emergency Current Visit: Yes Status: Acute (4) Hyperglycemia Current Visit: Yes Status: Acute (5) Hyperlipidemia Current Visit: Yes Status: Chronic (6) Obesity Current Visit: Yes Status: Chronic (7) Tobacco use Current Visit: Yes Status: Chronic
--- NOTE | 2020-07-08 12:04 | Cardiac Catherization Report ---
ABORTED CARDIAC CATHETERIZATION PROCEDURE: The patient is a 45-year-old -[place] gentleman with hypertension, brought in with 10/10 chest pain. Initial EKG revealed sinus tachycardia, left atrial enlargement, nonspecific ST-T wave changes. Initial cardiac enzyme is negative. Second cardiac enzyme is noted to be 0.347 consistent with a non-STEMI. Kidney function is normal. CBC is normal. Given risk factors presentation with a non-STEMI, active chest pain is referred for left heart catheterization. I saw him. He was prepped and draped in the labor contract analyst ready to proceed. Presedation pre-timeout. The patient abruptly changed his mind, declines procedure. He understands the gravity of this decision. We discussed the procedure again in detail including risks, benefits, and alternatives. He politely but vehemently declines and does not want any invasive procedure at this time. He understands that this could increase his likelihood for sudden cardiac . We will continue with medical therapy and abort cardiac catheterization due to the patient's wishes. JOB# [id number] PERCY/CHITO
[2020-07-08 12:20] VITALS: BP 165/116
[2020-07-08] MEDS ORDERED: CLOPIDOGREL 300 MG TAB PO ONE (14:39)
--- NOTE | 2020-07-08 16:32 | Discharge Summary ---
Providers - Providers Date of Admission: 07/08/20 01:27 Date of discharge: 07/08/20 Attending physician: JESSICA LANZA MD 07/08/20 Consult to Cardiac Rehabilitation [CONS] Routine Reason For Exam: Phase I 07/08/20 01:56 Consult to Cardiology [CONS] Routine Consulting Provider: DEANNA COTA Reason For Exam: chest pain 07/08/20 11:46 Consult to Physician [CONS] Routine Comment: Consulting Provider: JAILYN VARGAS Physician Instructions: Reason For Exam: critical care Primary care physician: INSOLE TACK PULLER [employer] Hospitalization Reason for admission: Acute chest pain Condition: Critical Hospital course: 45-year-old male with past medical history of hypertension and tobacco use who presents with precordial chest pain. Came to the ER, blood pressure was 270/174, patient was placed on Cardene drip and transferred to the ICU for continued care. Initial troponins were negative but did increase, was see labs for more details. Cardiology was consulted, patient was taken to the [facility] but at the last moment patient refused left heart catheterization. I spoke to the patient and patient stated that he wanted to leave AMA to get a second opinion. Went over the risks of leaving the hospital without further evaluation of his NSTEMI, which includes myocardial infarction, cardiac arrest, and . Patient stated that he understood the risk and would wanted to leave AMA. All documents signed by the patient. Spoke with cardiology pertaining to the issue, they were aware of the patient leaving AMA also. Disposition: [id number] LEFT AGAINST MED ADVICE - Discharge Diagnoses (1) ACS (acute coronary syndrome) Status: Acute (2) Chest pain Status: Acute Qualifiers: Chest pain type: precordial pain Qualified Code(s): R07.2 - Precordial pain (3) Hyperglycemia Status: Acute (4) Hypertensive emergency Status: Acute (5) NSTEMI (non-ST elevated myocardial infarction) Status: Acute (6) SOB (shortness of breath) Status: Acute (7) Hyperlipidemia Status: Chronic (8) Obesity Status: Chronic Qualifiers: Body mass index: unspecified BMI Core Measure Documentation - Palliative Care Palliative Care/ Comfort Measures: Not Applicable - Core Measures Any of the following diagnoses?: none Exam - Physical Exam Narrative exam: General appearance: Present: Obese, no acute distress, well-nourished - EENT Eyes: Present: PERRL, EOM intact ENT: hearing intact, clear oral mucosa - Respiratory Respiratory effort: normal Respiratory: bilateral: CTA, negative: rales, rhonchi, wheezing - Cardiovascular Rhythm: regular Heart Sounds: Present: S1 & S2. Absent: rub, click - Extremities Extremities: no ischemia, No edema, normal temperature, normal color, Full ROM - Abdominal General gastrointestinal: soft, non-tender, non-distended, normal bowel sounds - Integumentary Integumentary: Present: clear, warm, dry, normal turgor - Neurologic Neurologic: CNII-XII intact, no focal deficits, moves all extremities - Constitutional Vitals: Temp Pulse Resp BP Pulse Ox 98.7 F 108 H 16 165/116 100 07/07/20 22:46 07/08/20 10:25 07/08/20 10:25 07/08/20 12:15 07/08/20 12:15 Plan Follow up with: PRIMARY CARE, [Primary Care Provider] - 3-5 Days Forms: AMA Form
[2020-07-08] MEDS ORDERED: METOPROLOL TARTRATE 50 MG TAB PO SCH (22:00)
[2020-07-09] MEDS ORDERED: CLOPIDOGREL 75 MG TAB PO SCH (10:00)
[2020-07-09] MEDS ORDERED: ASPIRIN EC 325 MG TAB PO SCH (10:00)
== END 2020-07-08 13:00 | disposition left against medical advice (07) | DRG 281 ==
LOC: ED 22:38 → CC1 07-08 01:27
PROVIDERS: ADMIT Hospitalist; ATTEND Family Medicine
DX: I21.4 Non-ST elevation (NSTEMI) myocardial infarction (principal); I16.1 Hypertensive emergency; Z68.41 Body mass index [BMI] 40.0-44.9, adult; I10 Essential (primary) hypertension; E66.01 Morbid (severe) obesity due to excess calories; Z79.899 Other long term (current) drug therapy; R73.9 Hyperglycemia, unspecified; E78.5 Hyperlipidemia, unspecified; F17.200 Nicotine dependence, unspecified, uncomplicated
CPT/HCPCS: 36415; 71045; 71275; 80048; 80053; 80061; 83880; 84443; 84484; 85025; 85610; 85730; 93005; 93306; 96361; 96365; 96366; 96367; 96368; 96375; 96376; G0378; C1894; J1644; J2250; J2270; J2405; J3010; J7040; Q9967